=== PATIENT | male | born 1955 | race Caucasian/White ===

== ENCOUNTER 2021-06-10 11:38 | Inpatient (IN) | payer MEDICARE, MEDICAID ==
[~2021-06-10] VITALS: Ht 177.8 cm; Wt 86.4 kg
[~2021-06-10 11:38] MED LIST: HYDR12.5 PO; LISI20TA28 PO; SIMV5TAB58 PO; SYN0.088T PO
--- NOTE | 2021-06-10 12:13 | NUR ---
SOC CONTACTED FOR NEURO: ? Success A new connect request was successfully created for: ELGIN JOSEPH : 1955 ConnectID: [id number] REASON: Code Stroke TLKW 4.5 to 24 hours ACUITY: Acuity Level 2 SUBMITTED: 06/10/2021 12:13 PST
[2021-06-10 12:23] LABS: BASOPHILS # (AUTO) 0.1 X10'3 (0-0.2); BASOPHILS % (AUTO) 0.9 % (0-1); EOSINOPHILS # (AUTO) 0.2 X10'3 (0-0.9); EOSINOPHILS % (AUTO) 1.9 % (0-6); HEMATOCRIT 44.8 % (42.0-52.0); HEMOGLOBIN 15.2 g/dl (14.0-17.9); LYMPHOCYTES % (AUTO) 18.2 % (21-51); MEAN CORPUSCULAR HEMOGLOBIN 30.6 PG (27.0-31.0); MEAN CORPUSCULAR HGB CONC 33.9 g/dL (33.0-36.5); MEAN PLATELET VOLUME 7.3 FL (7.4-10.4); MONOCYTES # (AUTO) 1.4 X10'3 (0-0.9); MONOCYTES % (AUTO) 12.8 % (2-12); NEUTROPHILS # (AUTO) 7.4 X10'3 (1.8-7.7); NEUTROPHILS % (AUTO) 66.2 % (42-75); PLATELET COUNT 377 X10'3 (140-440); RED BLOOD COUNT 4.98 X10'6 (4.70-6.10); RED CELL DISTRIBUTION WIDTH 12.9 % (11.5-14.5); WHITE BLOOD COUNT 11.2 X10'3 (4.5-11.0)
[2021-06-10 12:35] LABS: PARTIAL THROMBOPLASTIN TIME 28 SECONDS (22-32)
[2021-06-10 12:36] LABS: ALANINE AMINOTRANSFERASE 19 U/L (12-78); ALBUMIN/GLOBULIN RATIO 0.6 (1.1-1.5); ALKALINE PHOSPHATASE 93 IU/L (46-116); ASPARTATE AMINO TRANSFERASE 13 U/L (10-37); BILIRUBIN,TOTAL 0.4 MG/DL (0.1-1.0); BLOOD UREA NITROGEN 13 MG/DL (7-18); BUN/CREATININE RATIO 19.1 (5.4-32.0); CALCIUM 9.5 MG/DL (8.5-10.1); CREATININE 0.68 MG/DL (0.60-1.10); GLUCOSE 104 MG/DL (70-104); TOTAL CARBON DIOXIDE 26.2 MMOL/L (24-32); TOTAL PROTEIN 8.2 G/DL (6.4-8.2); eGFR > 90 ML/MIN
[2021-06-10 12:57] LABS: ANION GAP 9 (8-16); CHLORIDE 100 MMOL/L (99-107); POTASSIUM 3.8 MMOL/L (3.5-5.1); SODIUM 135 MMOL/L (135-145)
[2021-06-10] MEDS ORDERED: aspirin 325mg tablet PO ONE (13:40)
[2021-06-10] MEDS ORDERED: LEVO25TA2 PO (17:03)
[2021-06-10 18:29] LABS: CLARITY,URINE CLEAR (Clear); COLOR,URINE YELLOW (Yellow); GLUCOSE, URINE NEGATIVE (Neg); KETONES,URINE NEGATIVE (Neg); LEUKOCYTE ESTERASE ,URINE NEGATIVE (Neg); NITRITES, URINE NEGATIVE (Neg); OCCULT BLOOD,URINE NEGATIVE (Neg); PH,URINE 6.5 (4.8-8.0); PROTEIN,URINE NEGATIVE (Neg); UROBILINOGEN,URINE 0.2 E.U/dL (0.2-1.0)
[2021-06-10 18:34] LABS: URINE AMPHETAMINE SCREEN POSITIVE (Neg); URINE BARBITUATE SCREEN NEGATIVE (Neg); URINE BENZODIAZEPINES SCREEN NEGATIVE (Neg); URINE CANNABINOID SCREEN NEGATIVE (Neg); URINE COCAINE SCREEN NEGATIVE (Neg); URINE METHADONE SCREEN NEGATIVE (Neg); URINE OPIATE SCREEN NEGATIVE (Neg); URINE PHENCYCLIDINE SCREEN NEGATIVE (Neg)
[2021-06-10 18:35] LABS: UA COLLECTION TYPE VOIDED
[2021-06-10] MEDS ORDERED: temazepam 15mg capsule PO PRN (21:00)
[2021-06-10] MEDS ORDERED: mag hydrox/Alum hydrox/simeth 30ml oral suspension PO PRN (23:45)
[2021-06-10] MEDS ORDERED: morphine 2 MG/ML inj. syringe IV PRN ×2 (23:45)
[2021-06-10] MEDS ORDERED: magnesium hydroxide 30ml (MOM) UD suspension PO PRN (23:45)
[2021-06-10] MEDS ORDERED: diphenhydrAMINE 50 mg/ml inj IV PRN (23:45)
[2021-06-10] MEDS ORDERED: bisacodyl 10mg suppository rectal RC PRN (23:45)
[2021-06-10] MEDS ORDERED: ondansetron 4mg rapidly disintigrating tab PO PRN (23:45)
[2021-06-10] MEDS ORDERED: diphenhydrAMINE 25mg capsule PO PRN (23:45)
[2021-06-10] MEDS ORDERED: HYDROcodone/acetaminophen 5mg/325mg tablet PO PRN (23:45)
[2021-06-10] MEDS ORDERED: acetaminophen 325mg tablet PO PRN ×2 (23:45)
[2021-06-10] MEDS ORDERED: ondansetron/PF 4mg/2ml inj IV PRN (23:45)
[2021-06-10] MEDS ORDERED: acetaminophen 650mg rectal suppository RC PRN (23:45)
[2021-06-11 00:31] LABS: PARTIAL THROMBOPLASTIN TIME 27 SECONDS (22-32)
[2021-06-11] MEDS: normal saline 1000ml 1,000 ML IV SCH ×4 (00:31→19:49)
[2021-06-11 00:44] LABS: MAGNESIUM 1.9 MG/DL (1.5-2.4); PHOSPHORUS 2.9 MG/DL (2.3-4.5)
[2021-06-11 01:34] LABS: BASOPHILS # (AUTO) 0.1 X10'3 (0-0.2); BASOPHILS % (AUTO) 0.7 % (0-1); EOSINOPHILS # (AUTO) 0.3 X10'3 (0-0.9); EOSINOPHILS % (AUTO) 2.5 % (0-6); HEMATOCRIT 44.5 % (42.0-52.0); HEMOGLOBIN 15.3 g/dl (14.0-17.9); LYMPHOCYTES # (AUTO) 2.6 X10'3 (1.1-4.8); LYMPHOCYTES % (AUTO) 22.3 % (21-51); MEAN CORPUSCULAR HEMOGLOBIN 30.8 PG (27.0-31.0); MEAN CORPUSCULAR HGB CONC 34.2 g/dL (33.0-36.5); MEAN CORPUSCULAR VOLUME 90.1 FL (78-98); MEAN PLATELET VOLUME 6.9 FL (7.4-10.4); MONOCYTES # (AUTO) 1.3 X10'3 (0-0.9); MONOCYTES % (AUTO) 11.2 % (2-12); NEUTROPHILS # (AUTO) 7.5 X10'3 (1.8-7.7); NEUTROPHILS % (AUTO) 63.3 % (42-75); PLATELET COUNT 373 X10'3 (140-440); RED BLOOD COUNT 4.95 X10'6 (4.70-6.10); RED CELL DISTRIBUTION WIDTH 12.6 % (11.5-14.5); WHITE BLOOD COUNT 11.8 X10'3 (4.5-11.0)
--- NOTE | 2021-06-11 01:45 | NUR ---
Patient in room PCU 3025. I have received report from Anca DAWN and had the opportunity to ask questions and assume patient care.
[2021-06-11 01:50] LABS: ALANINE AMINOTRANSFERASE 20 U/L (12-78); ALBUMIN 2.6 G/DL (3.4-5.0); ALBUMIN/GLOBULIN RATIO 0.5 (1.1-1.5); ALKALINE PHOSPHATASE 83 IU/L (46-116); ANION GAP 8 (8-16); ASPARTATE AMINO TRANSFERASE 10 U/L (10-37); BILIRUBIN,TOTAL 0.4 MG/DL (0.1-1.0); BLOOD UREA NITROGEN 13 MG/DL (7-18); BUN/CREATININE RATIO 21.3 (5.4-32.0); CALCIUM 9.1 MG/DL (8.5-10.1); CHLORIDE 102 MMOL/L (99-107); CHOL/HDL RATIO 5.3 (0.00-4.99); CHOLESTEROL 181 MG/DL (0-200); CREATININE 0.61 MG/DL (0.60-1.10); GLUCOSE 102 MG/DL (70-104); HDL CHOLESTEROL 34 MG/DL (35-60); LDL CHOLESTEROL 111 MG/DL (50-100); POTASSIUM 4.2 MMOL/L (3.5-5.1); SODIUM 137 MMOL/L (135-145); TOTAL CARBON DIOXIDE 27.2 MMOL/L (24-32); TOTAL PROTEIN 7.7 G/DL (6.4-8.2); TRIGLYCERIDES 181 MG/DL (20-135); eGFR > 90 ML/MIN
[2021-06-11 02:40] VITALS: BP 135/79
--- NOTE | 2021-06-11 04:24 | NUR ---
Pt's normal saline reassessment not done. Reason: pt at ER
--- NOTE | 2021-06-11 07:02 | NUR ---
Patient in room PCU 3025. I have received report from Mila Sanchez and had the opportunity to ask questions and assume patient care.
[2021-06-11 07:13] VITALS: BP 123/88
[2021-06-11] MEDS ORDERED: atorvastatin 10mg tablet PO SCH (08:00)
[2021-06-11] MEDS: heparin, porcine 5000 units/ml vial SQ SCH ×2 (08:37→19:45)
[2021-06-11] MEDS: pantoprazole 40mg Tablet.DR PO SCH (08:38)
[2021-06-11] MEDS: docusate sod 100mg capsule PO SCH ×2 (08:38→19:45)
[2021-06-11] MEDS: levoTHYROXINE 25mcg tablet PO SCH (08:39)
[2021-06-11 11:00] VITALS: BP 131/77
[2021-06-11] MEDS ORDERED: aspirin 325mg tablet, delayed-release (Ecotrin) PO SCH (13:20)
[2021-06-11] MEDS ORDERED: aspirin 325mg tablet, delayed-release (Ecotrin) PO ONE (13:20)
--- NOTE | 2021-06-11 14:00 | NUR ---
Pt ambulated in hallway wit PT and tolerated well. Now oob to chair. Call light in reach
[2021-06-11 15:00] VITALS: BP 122/74
[2021-06-11 18:00] VITALS: BP 106/76
--- NOTE | 2021-06-11 18:48 | NUR ---
Problems reprioritized. Patient report given, questions answered & plan of care reviewed with Woodrow [].
[2021-06-11 22:00] VITALS: BP 128/69
[2021-06-12 02:00] VITALS: BP 124/77
[2021-06-12 06:08] LABS: BASOPHILS # (AUTO) 0.1 X10'3 (0-0.2); BASOPHILS % (AUTO) 0.6 % (0-1); EOSINOPHILS # (AUTO) 0.2 X10'3 (0-0.9); EOSINOPHILS % (AUTO) 2.5 % (0-6); NEUTROPHILS # (AUTO) 4.5 X10'3 (1.8-7.7); RED BLOOD COUNT 4.66 X10'6 (4.70-6.10)
[2021-06-12 06:11] LABS: HEMOGLOBIN 14.5 g/dl (14.0-17.9); LYMPHOCYTES # (AUTO) 2.7 X10'3 (1.1-4.8); LYMPHOCYTES % (AUTO) 32.9 % (21-51); MEAN CORPUSCULAR HEMOGLOBIN 31.1 PG (27.0-31.0); MEAN CORPUSCULAR HGB CONC 34.5 g/dL (33.0-36.5); MEAN CORPUSCULAR VOLUME 90.1 FL (78-98); MEAN PLATELET VOLUME 7.8 FL (7.4-10.4); MONOCYTES # (AUTO) 0.8 X10'3 (0-0.9); MONOCYTES % (AUTO) 9.5 % (2-12); NEUTROPHILS % (AUTO) 54.5 % (42-75); PLATELET COUNT 367 X10'3 (140-440); RED CELL DISTRIBUTION WIDTH 12.8 % (11.5-14.5); WHITE BLOOD COUNT 8.3 X10'3 (4.5-11.0)
[2021-06-12 06:20] LABS: ALANINE AMINOTRANSFERASE 20 U/L (12-78); ALBUMIN 2.5 G/DL (3.4-5.0); ALBUMIN/GLOBULIN RATIO 0.5 (1.1-1.5); ALKALINE PHOSPHATASE 75 IU/L (46-116); ANION GAP 8 (8-16); ASPARTATE AMINO TRANSFERASE 12 U/L (10-37); BILIRUBIN,TOTAL 0.3 MG/DL (0.1-1.0); BLOOD UREA NITROGEN 20 MG/DL (7-18); BUN/CREATININE RATIO 28.6 (5.4-32.0); CALCIUM 8.9 MG/DL (8.5-10.1); CHLORIDE 104 MMOL/L (99-107); GLUCOSE 98 MG/DL (70-104); POTASSIUM 4.2 MMOL/L (3.5-5.1); SODIUM 139 MMOL/L (135-145); TOTAL CARBON DIOXIDE 26.8 MMOL/L (24-32); TOTAL PROTEIN 7.2 G/DL (6.4-8.2); eGFR > 90 ML/MIN
[2021-06-12 07:00] VITALS: BP 138/85
[2021-06-12] MEDS ORDERED: atorvastatin 20mg tablet PO SCH (08:00)
[2021-06-12] MEDS ORDERED: aspirin 325mg tablet, delayed-release (Ecotrin) PO SCH (08:00)
[2021-06-12] MEDS: docusate sod 100mg capsule PO SCH (09:37)
[2021-06-12] MEDS: levoTHYROXINE 25mcg tablet PO SCH (09:37)
[2021-06-12] MEDS: heparin, porcine 5000 units/ml vial SQ SCH (09:39)
[2021-06-12] MEDS: pantoprazole 40mg Tablet.DR PO SCH (09:44)
[2021-06-12] MEDS: normal saline 1000ml 1,000 ML IV SCH (09:46)
[2021-06-12 11:00] VITALS: BP 116/75
[2021-06-12] MEDS ORDERED: ASPI-1264 PO (13:19)
[2021-06-12] MEDS ORDERED: ATOR20TA66 PO (13:19)
[2021-06-12 15:00] VITALS: BP 123/80
--- NOTE | 2021-06-12 18:22 | NUR ---
Patient d/c to go home with d/c instructions/directions given to patient's daughter via phone and patient. 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 IV line and traffic monitor specialist removed. He denied pain and discomfort at the time of d/c. He was transferred to the [facility] via wheel chair with all belongings. Slip also giving to black pickler belongings in the safe box.
== END 2021-06-12 18:02 | disposition home health service (06) | DRG 65 ==
LOC: ER 11:39 → ED HOLD 23:47 → PCU 3S 06-11 01:57
PROVIDERS: ADMIT Family Medicine; ATTEND Family Medicine
DX: I63.9 Cerebral infarction, unspecified (principal); G81.91 Hemiplegia, unspecified affecting right dominant side; R47.1 Dysarthria and anarthria; I10 Essential (primary) hypertension; R29.703 NIHSS score 3; M54.50 Low back pain, unspecified; R27.0 Ataxia, unspecified; R32 Unspecified urinary incontinence; I67.1 Cerebral aneurysm, nonruptured; E03.9 Hypothyroidism, unspecified; E78.5 Hyperlipidemia, unspecified; F15.10 Other stimulant abuse, uncomplicated; K59.00 Constipation, unspecified; Z86.16 Personal history of COVID-19; Z80.41 Family history of malignant neoplasm of ovary; Z80.42 Family history of malignant neoplasm of prostate; Z79.899 Other long term (current) drug therapy; Z71.51 Drug abuse counseling and surveillance of drug abuser; Z79.82 Long term (current) use of aspirin
CPT/HCPCS: 36415; 70450; 70544; 70547; 70551; 71045; 72141; 72146; 72148; 80053; 80061; 80305; 81003; 82607; 83036; 83605; 83735; 83880; 84100; 84145; 84443; 85025; 85610; 85651; 85730; 86140; 86885; 86900; 86901; 87040; 87081; 92508; 92616; 93005; 93306; 97116; 97162; 97530; 99285; G0378; J1644; J7030